=== PATIENT | female | born 1985 | race Hispanic/Latino ===

== ENCOUNTER 2020-06-04 14:53 | Outpatient (CLI) | payer OTHER ==
--- NOTE | 2020-06-04 16:55 | ULT ---
Thyroid sonogram HISTORY: Enlargement. Nodule. FINDINGS: Right thyroid lobe is 7.0 cm length. At the inferior pole is a slightly lobular heterogeneous isoecho ic/hypoechoic nodule that is 0.8 cm greatest diameter. Isthmus is 0.8 cm thick. Left thyroid lobe measures up to 7.6 cm. At the inferior pole is a well-circumscribed complex predomi nantly solid heterogeneous isoechoic mass that is 3.6 cm length by 2.3 cm depth. No internal calcifications. IMPRESSION : Diffusely enlarged thyroid gland. Dominant nodule at the inferior pole left thyroid lobe as detailed above. TI RADS 3. Mildly suspicious. Because of the large size, however, tissue sampling is warranted. Please consider fine needle aspirat ion for cytologic evaluation. Sonographic guided FNA could be scheduled if needed.
== END 2020-06-04 14:54 | disposition home or self-care (01) ==
LOC: SCSULT 14:53
PROVIDERS: ATTEND Family Medicine
DX: E04.9 Nontoxic goiter, unspecified (principal); E04.1 Nontoxic single thyroid nodule
CPT/HCPCS: 76536